=== PATIENT | female | born 1995 | race Caucasian/White ===

== ENCOUNTER 2021-01-21 16:38 | Inpatient (IN) | payer BC ==
[~2021-01-21] VITALS: Ht 149.9 cm; Wt 64.0 kg
[2021-01-21 17:51] LABS: HEMOGLOBIN 10.9 gm/dl (12.3-15.3); RED BLOOD COUNT 3.89 M/UL (4.00-5.10); WHITE BLOOD COUNT 11.9 K/UL (4.5-11.0)
[2021-01-21] MEDS ORDERED: PRENATAL VITAM1 EAC3 PO (23:14)
[2021-01-22] MEDS ORDERED: COLACE 100MG C100 MG PO (14:37)
[2021-01-22] MEDS ORDERED: IBUPROFEN600 MG PO (14:37)
[2021-01-23 06:45] LABS: HEMOGLOBIN 9.2 gm/dl (12.3-15.3)
== END 2021-01-24 15:08 | disposition home or self-care (01) | DRG 807 ==
LOC: GENOP 16:38 → OB 17:04
PROVIDERS: ADMIT Obstetrics & Gynecology
PROC: 10E0XZZ Delivery of Products of Conception, External Approach (ICD-10-PCS; principal; 2021-01-21)
DX: O99.344 Other mental disorders complicating childbirth (principal); Z37.0 Single live birth; F41.8 Other specified anxiety disorders; Z3A.39 39 weeks gestation of pregnancy
CPT/HCPCS: 36415; 51702; 81001; 82800; 85014; 85018; 85025; 85461; 86850; 86900; 86901; 90715; J2001; J2590; J2795; U0003